=== PATIENT | female | born 1940 | race Two or more races ===

== ENCOUNTER → 2017-08-03 | Outpatient (CLI) | payer OTHER | END | disposition home or self-care (01) | LOC: RAD 08:44 → SONOGRAMA 08:44 | DX: E04.2 Nontoxic multinodular goiter (principal) ==

== ENCOUNTER → 2019-09-21 10:27 | Outpatient (CLI) | payer OTHER | END | disposition home or self-care (01) | LOC: LAB 10:27 | PROVIDERS: ATTEND Internal Medicine Hematology & Oncology | DX: M13.872 Other specified arthritis, left ankle and foot (principal); M13.871 Other specified arthritis, right ankle and foot; E55.9 Vitamin D deficiency, unspecified; C50.912 Malignant neoplasm of unspecified site of left female breast ==

== ENCOUNTER 2019-09-27 07:31 | Outpatient (CLI) | payer OTHER | END 2019-09-27 07:36 | disposition home or self-care (01) | LOC: SONOGRAMA 07:31 | DX: R10.84 Generalized abdominal pain (principal); N18.4 Chronic kidney disease, stage 4 (severe) ==